=== PATIENT | male | born 1955 | race Caucasian/White ===

== ENCOUNTER → 2022-08-03 | Outpatient (CLI) | payer OTHER | LOC: RAD 11:43 | PROVIDERS: ATTEND Nurse Practitioner Family | DX: R22.43 Localized swelling, mass and lump, lower limb, bilateral (principal) | CPT/HCPCS: 93970 ==

== ENCOUNTER 2022-10-18 15:36 | Inpatient (IN) | payer MEDICARE, OTHER ==
[~2022-10-18] VITALS: Ht 177.8 cm; Wt 113.4 kg
[2022-10-18 21:59] VITALS: BP 166/84
[2022-10-18 22:56] LABS: CREATINE KINASE MB 2.2 ng/mL (0-5.0)
[2022-10-18] MEDS ORDERED: LATANOPROST2.5 ML (23:22)
[2022-10-18] MEDS ORDERED: PREGABALIN75 MG PO (23:22)
[2022-10-18] MEDS ORDERED: JARDIANCE10 MG PO (23:22)
[2022-10-18] MEDS ORDERED: HYDRALAZINE HCL50 MG PO (23:22)
[2022-10-18] MEDS ORDERED: PANTOPRAZOLE SO40 MG PO (23:22)
[2022-10-18] MEDS ORDERED: FUROSEMIDE20 MG PO (23:22)
[2022-10-18 23:28] VITALS: BP 166/84
[2022-10-18 23:34] VITALS: BP 166/84
[2022-10-18] MEDS: FUROSEMIDE INJ 10 MG/ML 4 ML VIAL IV SCH (23:37)
[2022-10-18] MEDS ORDERED: ENOXAPARIN SOD INJ 40 MG/0.4 ML SYR SC ONE (23:45)
[2022-10-19] VITALS (8 sets, daily range): BP systolic 114–142; BP diastolic 58–74
[2022-10-19 05:04] LABS: BASOPHILS # (AUTO) 0.1 (0.0-0.1); BASOPHILS % 0.7 % (0.0-1.0); EOSINOPHILS # (AUTO) 0.5 (0.0-0.4); EOSINOPHILS % 7.2 % (0.0-6.0); LYMPHOCYTES # (AUTO) 1.8 (1.0-3.2); LYMPHOCYTES % 24.1 % (18.0-39.1); MEAN CORPUSCULAR HEMOGLOBIN 28.9 pg (28-32); MEAN CORPUSCULAR VOLUME 96.5 fL (81-99); MONOCYTES # (AUTO) 0.6 (0.2-0.8); MONOCYTES % 7.7 % (4.4-11.3); NEUTROPHILS # (AUTO) 4.5 (2.1-6.9); NEUTROPHILS % 59.9 % (38.7-80.0); PLATELET COUNT 279 x10e3/uL (140-360); RED BLOOD COUNT 3.11 x10e6/uL (4.3-5.7); RED CELL DISTRIBUTION WIDTH 12.8 % (11.7-14.4)
[2022-10-19 05:21] LABS: ALBUMIN 3.6 g/dL (3.5-5.0); ALBUMIN/GLOBULIN RATIO 1.1 (0.8-2.0); ALKALINE PHOSPHATASE 90 IU/L (40-150); ANION GAP 18.5 mmol/L (8-16); BLOOD UREA NITROGEN 32 mg/dL (7-26); BUN/CREATININE RATIO 15 (6-25); CALCIUM 8.2 mg/dL (8.4-10.2); CARBON DIOXIDE 22 mmol/L (22-29); CHLORIDE 103 mmol/L (98-107); CREATINE KINASE 220 IU/L (30-200); CREATININE, SERUM 2.19 mg/dL (0.72-1.25); GLUCOSE 227 mg/dL (74-118); POTASSIUM 3.5 mmol/L (3.5-5.1); SODIUM 140 mmol/L (136-145)
[2022-10-19 05:23] LABS: ALANINE AMINOTRANSFERASE < 6 IU/L (0-55)
[2022-10-19 05:47] LABS: THYROID STIMULATING HORMONE 2.224 uIU/mL (0.350-4.940)
[2022-10-19] MEDS: PANTOPRAZOLE SOD 40 MG TABEC PO SCH (08:57)
[2022-10-19] MEDS: FUROSEMIDE INJ 10 MG/ML 4 ML VIAL IV SCH ×2 (08:57→21:39)
[2022-10-19] MEDS: ASPIRIN 81 MG ENTERIC COATED PO SCH (11:09)
[2022-10-19 12:29] LABS: CREATINE KINASE MB 1.5 ng/mL (0-5.0)
[2022-10-19] MEDS: ENOXAPARIN SOD INJ 40 MG/0.4 ML SYR SC SCH (16:58)
[2022-10-19] MEDS: HYDRALAZINE HCL 10 MG TAB PO SCH (16:58)
[2022-10-19] MEDS ORDERED: DEXTROSE 50% SYRINGE 50 ML IV PRN (19:15)
[2022-10-19 19:40] LABS: CHOL/HDL RATIO 4.1 (3.9-4.7)
[2022-10-19] MEDS: PREGABALIN 75 MG CAP PO SCH ×2 (21:00→21:52)
[2022-10-19] MEDS: INSULIN LISPRO 100 UNIT/1 ML 3ML VIAL SQ SCH (21:50)
[2022-10-19 22:25] LABS: CLARITY,URINE CLEAR (CLEAR); COLOR,URINE YELLOW (YELLOW); KETONES,URINE NEGATIVE (NEGATIVE); LEUKOCYTE ESTERASE ,URINE NEGATIVE (NEGATIVE); NITRITE,URINE NEGATIVE (NEGATIVE); PROTEIN,URINE DIPSTICK 1+ (NEGATIVE); URINE UROBILINOGEN 0.2 mg/dL (0.2 - 1)
[2022-10-19 22:29] LABS: BACTERIA,URINE FEW /HPF; EPITHELIAL CELLS,URINE RARE /LPF; RBC,URINE 0-5 /HPF (0-5); WBC,URINE (MAN) 0-5 /HPF (0-5)
[2022-10-20] VITALS (7 sets, daily range): BP systolic 115–140; BP diastolic 50–93
[2022-10-20 06:29] LABS: BASOPHILS % 0.6 % (0.0-1.0); EOSINOPHILS # (AUTO) 0.6 (0.0-0.4); EOSINOPHILS % 8.4 % (0.0-6.0); HEMATOCRIT 28.2 % (38.2-49.6); HEMOGLOBIN 8.5 g/dL (14.0-18.0); LYMPHOCYTES # (AUTO) 1.9 (1.0-3.2); LYMPHOCYTES % 28.9 % (18.0-39.1); MEAN CORPUSCULAR HEMOGLOBIN 28.9 pg (28-32); MEAN CORPUSCULAR HGB CONC 30.1 g/dL (31-35); MEAN CORPUSCULAR VOLUME 95.9 fL (81-99); MONOCYTES # (AUTO) 0.6 (0.2-0.8); NEUTROPHILS # (AUTO) 3.5 (2.1-6.9); NEUTROPHILS % 52.9 % (38.7-80.0); PLATELET COUNT 247 x10e3/uL (140-360); RED BLOOD COUNT 2.94 x10e6/uL (4.3-5.7); RED CELL DISTRIBUTION WIDTH 12.6 % (11.7-14.4)
[2022-10-20 06:49] LABS: ALBUMIN 3.1 g/dL (3.5-5.0); ALKALINE PHOSPHATASE 72 IU/L (40-150); BLOOD UREA NITROGEN 35 mg/dL (7-26); BUN/CREATININE RATIO 15 (6-25); CALCIUM 8.1 mg/dL (8.4-10.2); CARBON DIOXIDE 23 mmol/L (22-29); CHLORIDE 104 mmol/L (98-107); CHOLESTEROL 139 MD/DL (0-199); CREATININE, SERUM 2.31 mg/dL (0.72-1.25); GLUCOSE 187 mg/dL (74-118); HDL CHOLESTEROL 28 MG/DL (40-60); LDL CHOLESTEROL 96 MG/DL (60-130); SODIUM 139 mmol/L (136-145); TRIGLYCERIDES 77 MG/DL (0-149)
[2022-10-20 07:11] LABS: ALANINE AMINOTRANSFERASE < 6 IU/L (0-55)
[2022-10-20] MEDS: FUROSEMIDE INJ 10 MG/ML 4 ML VIAL IV SCH ×2 (08:42→20:43)
[2022-10-20] MEDS: PREGABALIN 75 MG CAP PO SCH ×2 (08:42→20:43)
[2022-10-20] MEDS: ASPIRIN 81 MG ENTERIC COATED PO SCH (08:42)
[2022-10-20] MEDS: PANTOPRAZOLE SOD 40 MG TABEC PO SCH (08:42)
[2022-10-20] MEDS: HYDRALAZINE HCL 10 MG TAB PO SCH ×2 (08:43→16:49)
[2022-10-20] MEDS: INSULIN LISPRO 100 UNIT/1 ML 3ML VIAL SQ SCH ×4 (08:53→20:52)
[2022-10-20] MEDS: ENOXAPARIN SOD INJ 40 MG/0.4 ML SYR SC SCH (16:49)
[2022-10-21] VITALS: BP 132/60
[2022-10-21 02:37] LABS: TOTAL PROTEIN 24HR, URINE 640.2 mg/24hr (50-100); TOTAL PROTEIN, URINE 13.2 mg/dL (1-14)
[2022-10-21 04:00] VITALS: BP 129/65
[2022-10-21 06:47] LABS: BASOPHILS # (AUTO) 0.1 (0.0-0.1); EOSINOPHILS # (AUTO) 0.6 (0.0-0.4); EOSINOPHILS % 9.2 % (0.0-6.0); HEMATOCRIT 26.6 % (38.2-49.6); HEMOGLOBIN 8.7 g/dL (14.0-18.0); LYMPHOCYTES # (AUTO) 1.8 (1.0-3.2); LYMPHOCYTES % 28.7 % (18.0-39.1); MEAN CORPUSCULAR HEMOGLOBIN 29.1 pg (28-32); MEAN CORPUSCULAR HGB CONC 32.7 g/dL (31-35); MONOCYTES # (AUTO) 0.5 (0.2-0.8); MONOCYTES % 8.4 % (4.4-11.3); NEUTROPHILS # (AUTO) 3.2 (2.1-6.9); NEUTROPHILS % 52.4 % (38.7-80.0); PLATELET COUNT 254 x10e3/uL (140-360); RED BLOOD COUNT 2.99 x10e6/uL (4.3-5.7); RED CELL DISTRIBUTION WIDTH 12.6 % (11.7-14.4)
[2022-10-21 07:13] LABS: ALANINE AMINOTRANSFERASE < 6 IU/L (0-55); ALBUMIN 3.1 g/dL (3.5-5.0); ALKALINE PHOSPHATASE 67 IU/L (40-150); ANION GAP 14.8 mmol/L (8-16); BLOOD UREA NITROGEN 45 mg/dL (7-26); BUN/CREATININE RATIO 19 (6-25); CALCIUM 8.1 mg/dL (8.4-10.2); CARBON DIOXIDE 25 mmol/L (22-29); CHLORIDE 103 mmol/L (98-107); CREATININE, SERUM 2.33 mg/dL (0.72-1.25); GLUCOSE 181 mg/dL (74-118); POTASSIUM 3.8 mmol/L (3.5-5.1); SODIUM 139 mmol/L (136-145)
[2022-10-21 08:06] VITALS: BP 141/58
[2022-10-21] MEDS: FUROSEMIDE INJ 10 MG/ML 4 ML VIAL IV SCH (08:36)
[2022-10-21] MEDS: HYDRALAZINE HCL 10 MG TAB PO SCH ×2 (08:37→16:55)
[2022-10-21] MEDS: ASPIRIN 81 MG ENTERIC COATED PO SCH (08:37)
[2022-10-21] MEDS: PREGABALIN 75 MG CAP PO SCH ×2 (08:37→20:51)
[2022-10-21] MEDS: PANTOPRAZOLE SOD 40 MG TABEC PO SCH (08:37)
[2022-10-21] MEDS: INSULIN LISPRO 100 UNIT/1 ML 3ML VIAL SQ SCH ×4 (08:43→20:48)
[2022-10-21 09:05] VITALS: BP 141/58
[2022-10-21 15:27] LABS: ANION GAP 18.3 mmol/L (8-16); CALCIUM 8.5 mg/dL (8.4-10.2); CREATININE, SERUM 2.36 mg/dL (0.72-1.25); POTASSIUM 4.3 mmol/L (3.5-5.1)
[2022-10-21] MEDS: ENOXAPARIN SOD INJ 40 MG/0.4 ML SYR SC SCH (16:54)
[2022-10-21] MEDS: SODIUM CHLORIDE 0.9% 1000ML 1,000 ML IV SCH (16:56)
[2022-10-21 17:04] VITALS: BP 131/60
[2022-10-21 20:28] VITALS: BP 120/57
[2022-10-21] MEDS ORDERED: PREDNISONE 20 MG TAB PO ONE (21:00)
[2022-10-22] VITALS (15 sets, daily range): BP systolic 126–162; BP diastolic 60–95
[2022-10-22 06:19] LABS: BASOPHILS % 0.6 % (0.0-1.0); EOSINOPHILS % 0.4 % (0.0-6.0); HEMATOCRIT 32.6 % (38.2-49.6); HEMOGLOBIN 9.9 g/dL (14.0-18.0); LYMPHOCYTES # (AUTO) 0.5 (1.0-3.2); LYMPHOCYTES % 11.5 % (18.0-39.1); MEAN CORPUSCULAR HEMOGLOBIN 28.8 pg (28-32); MEAN CORPUSCULAR HGB CONC 30.4 g/dL (31-35); MEAN CORPUSCULAR VOLUME 94.8 fL (81-99); MONOCYTES # (AUTO) 0.1 (0.2-0.8); MONOCYTES % 1.3 % (4.4-11.3); NEUTROPHILS % 85.8 % (38.7-80.0); PLATELET COUNT 319 x10e3/uL (140-360); RED BLOOD COUNT 3.44 x10e6/uL (4.3-5.7); RED CELL DISTRIBUTION WIDTH 12.2 % (11.7-14.4)
[2022-10-22 07:00] LABS: ALBUMIN 3.3 g/dL (3.5-5.0); ALBUMIN/GLOBULIN RATIO 0.9 (0.8-2.0); ANION GAP 13.7 mmol/L (8-16); CALCIUM 8.4 mg/dL (8.4-10.2); CREATININE, SERUM 2.09 mg/dL (0.72-1.25); POTASSIUM 4.7 mmol/L (3.5-5.1)
[2022-10-22] MEDS: INSULIN LISPRO 100 UNIT/1 ML 3ML VIAL SQ SCH ×4 (08:40→21:40)
[2022-10-22] MEDS ORDERED: HEPARIN SOD (PORCINE) 1000 UNIT/ML 30ML ONE (08:46)
[2022-10-22] MEDS ORDERED: LIDOCAINE HCL 1% 30ML-PF VIAL ONE (08:46)
[2022-10-22] MEDS ORDERED: HEPARIN SOD/SOD CHLORIDE 2,000 ML ONE (08:46)
[2022-10-22] MEDS ORDERED: IOPAMIDOL 370 MG/ML 100 ML INFUS..BTL INJ ONE (08:47)
[2022-10-22] MEDS ORDERED: NITROGLYCERIN/D5W 200 MCG/ML 250 ML ONE (08:47)
[2022-10-22] MEDS ORDERED: DIPHENHYDRAMINE HCL INJ 50 MG/ML VIAL ONE (09:11)
[2022-10-22] MEDS ORDERED: HYDROCORTISONE SOD SUCCINATE 100 MG VIAL ONE (09:11)
[2022-10-22] MEDS ORDERED: MIDAZOLAM HCL 2 MG/2 ML VIAL ONE (09:11)
[2022-10-22] MEDS ORDERED: FENTANYL CITRATE/PF 100MCG/2 ML INJ ONE (09:12)
[2022-10-22] MEDS ORDERED: SODIUM CHLORIDE 0.9% 1000ML 1,000 ML ONE (09:13)
[2022-10-22] MEDS: PANTOPRAZOLE SOD 40 MG TABEC PO SCH (12:44)
[2022-10-22] MEDS: PREGABALIN 75 MG CAP PO SCH ×2 (12:44→21:31)
[2022-10-22] MEDS: ASPIRIN 81 MG ENTERIC COATED PO SCH (12:45)
[2022-10-22] MEDS: HYDRALAZINE HCL 10 MG TAB PO SCH ×2 (12:45→16:26)
[2022-10-22 15:38] LABS: ANION GAP 14.5 mmol/L (8-16); CALCIUM 8.5 mg/dL (8.4-10.2); CREATININE, SERUM 1.88 mg/dL (0.72-1.25); POTASSIUM 4.5 mmol/L (3.5-5.1)
[2022-10-22] MEDS: SODIUM CHLORIDE 0.9% 1000ML 1,000 ML IV SCH (16:26)
[2022-10-23 00:25] VITALS: BP 118/52
[2022-10-23 04:00] VITALS: BP 120/69
[2022-10-23 06:20] LABS: BASOPHILS # (AUTO) 0.1 (0.0-0.1); BASOPHILS % 0.5 % (0.0-1.0); EOSINOPHILS # (AUTO) 0.2 (0.0-0.4); EOSINOPHILS % 1.6 % (0.0-6.0); HEMATOCRIT 25.1 % (38.2-49.6); HEMOGLOBIN 8.3 g/dL (14.0-18.0); LYMPHOCYTES # (AUTO) 2.1 (1.0-3.2); LYMPHOCYTES % 20.9 % (18.0-39.1); MEAN CORPUSCULAR HEMOGLOBIN 29.5 pg (28-32); MEAN CORPUSCULAR HGB CONC 33.1 g/dL (31-35); MEAN CORPUSCULAR VOLUME 89.3 fL (81-99); MONOCYTES # (AUTO) 0.7 (0.2-0.8); MONOCYTES % 6.8 % (4.4-11.3); NEUTROPHILS # (AUTO) 7.1 (2.1-6.9); NEUTROPHILS % 69.8 % (38.7-80.0); PLATELET COUNT 244 x10e3/uL (140-360); RED BLOOD COUNT 2.81 x10e6/uL (4.3-5.7); RED CELL DISTRIBUTION WIDTH 12.7 % (11.7-14.4)
[2022-10-23] MEDS: SODIUM CHLORIDE 0.9% 1000ML 1,000 ML IV SCH (06:27)
[2022-10-23 06:57] LABS: CALCIUM 7.9 mg/dL (8.4-10.2); CREATININE, SERUM 1.92 mg/dL (0.72-1.25)
[2022-10-23] MEDS: INSULIN LISPRO 100 UNIT/1 ML 3ML VIAL SQ SCH (07:30)
[2022-10-23 07:41] VITALS: BP 139/67
[2022-10-23] MEDS ORDERED: FUROSEMIDE 40 MG TAB PO SCH (09:30)
[2022-10-23] MEDS: PANTOPRAZOLE SOD 40 MG TABEC PO SCH (09:37)
[2022-10-23] MEDS: PREGABALIN 75 MG CAP PO SCH (09:37)
[2022-10-23] MEDS: ASPIRIN 81 MG ENTERIC COATED PO SCH (09:37)
[2022-10-23 11:16] VITALS: BP 139/67
[2022-10-23 15:52] VITALS: BP 150/80
[2022-10-23] MEDS ORDERED: HYDRALAZINE HCL 10 MG TAB PO SCH (17:00)
== END 2022-10-23 17:43 | disposition home or self-care (01) | DRG 286 ==
LOC: MED/SURG3 21:40 → OBSVTOIN 10-21 15:48
PROVIDERS: ADMIT Family Medicine; ATTEND Family Medicine
PROC: 4A023N7 Measurement of Cardiac Sampling and Pressure, Left Heart, Percutaneous Approach (ICD-10-PCS; principal; 2022-10-22)
PROC: B2111ZZ Fluoroscopy of Multiple Coronary Arteries using Low Osmolar Contrast (ICD-10-PCS; 2022-10-22)
PROC: B3151ZZ Fluoroscopy of Bilateral Common Carotid Arteries using Low Osmolar Contrast (ICD-10-PCS; 2022-10-22)
PROC: B3121ZZ Fluoroscopy of Left Subclavian Artery using Low Osmolar Contrast (ICD-10-PCS; 2022-10-22)
DX: I13.0 Hypertensive heart and chronic kidney disease with heart failure and stage 1 through stage 4 chronic kidney disease, or unspecified chronic kidney disease (principal); I50.33 Acute on chronic diastolic (congestive) heart failure; N17.0 Acute kidney failure with tubular necrosis; N18.4 Chronic kidney disease, stage 4 (severe); E11.22 Type 2 diabetes mellitus with diabetic chronic kidney disease; Z79.4 Long term (current) use of insulin; I35.0 Nonrheumatic aortic (valve) stenosis; Z87.891 Personal history of nicotine dependence; E11.51 Type 2 diabetes mellitus with diabetic peripheral angiopathy without gangrene; M54.10 Radiculopathy, site unspecified; E11.69 Type 2 diabetes mellitus with other specified complication; E78.2 Mixed hyperlipidemia; J44.9 Chronic obstructive pulmonary disease, unspecified; Z88.5 Allergy status to narcotic agent; I25.10 Atherosclerotic heart disease of native coronary artery without angina pectoris; I34.0 Nonrheumatic mitral (valve) insufficiency; Z20.822 Contact with and (suspected) exposure to COVID-19; D63.1 Anemia in chronic kidney disease
CPT/HCPCS: 36415; 71046; 80048; 80053; 80061; 81001; 81050; 82270; 82550; 82553; 82948; 83036; 83735; 83880; 84156; 84436; 84443; 84479; 84484; 85025; 93005; 93306; 93458; 93880; 93925; 93970; 94799; 96361; 99152; 99153; C1766; C1769; C1887; G0378; J1200; J1644; J1650; J1720; J1940; J2001; J2250; J3010; J7030; J7512; Q9967